=== PATIENT | female | born 1940 | race African-American/Black ===

== ENCOUNTER 2016-08-29 13:56 | Emergency (ER) | payer OTHER ==
[~2016-08-29] VITALS: Ht 152.4 cm; Wt 101.6 kg
[~2016-08-29 13:56] MED LIST: AMLODIPINE BESY10 MG PO; ASPIR 8181 MG; BACTRIM DS TAB1 EACH PO; CALCIUM 600 +1 EAC1 PO; CALCIUM500 MG; CYCLOBENZAPRINE5 MG PO; FIBER TABS625 MG; FORTAMET500 MG PO; GLIMEPIRIDE1 MG PO; GLUCOPHAGE XR500 MG; JANUVIA25 MG PO; K-DUR 20 MEQ T20 MEQ PO; LASIX 20 MG TAB20 MG; LOSARTAN-HCTZ1 EAC1 PO; MAXZIDE-25 MG1 EACH PO; MOBIC15 MG PO; MULTIVITAMINS1 EAC7; NORCO 5-325 TA1 EACH PO; NORVASC2.5 MG PO; OMEGA-31000 M1; OSTEO BI-FLEX1 EAC1; PEPCID20 MG; PEPCID40 MG PO; VITAMIN D3400 UNI2
[2016-08-29 13:57] VITALS: BP 158/70
== END 2016-08-29 14:43 | disposition home or self-care (01) ==
LOC: ER 13:56
DX: S61.216A Laceration without foreign body of right little finger without damage to nail, initial encounter (principal); E11.9 Type 2 diabetes mellitus without complications; I10 Essential (primary) hypertension; Z88.8 Allergy status to other drugs, medicaments and biological substances; Z87.891 Personal history of nicotine dependence; W26.8XXA Contact with other sharp object(s), not elsewhere classified, initial encounter; Y93.89 Activity, other specified; Y92.89 Other specified places as the place of occurrence of the external cause; Y99.9 Unspecified external cause status